=== PATIENT | male | born 1940 | race Caucasian/White ===

== ENCOUNTER 2018-09-28 17:20 | Inpatient (IN) | payer MEDICARE, OTHER, BC ==
[2018-09-28] MEDS: ONDANSETRON 4 MG INJ IV (18:04)
[2018-09-28] MEDS: morphine 4 MG/ML VIAL IV (18:04)
[2018-09-28 18:07] LABS: ADD MAN DIFF? NO
[2018-09-28 18:10] LABS: WHITE BLOOD COUNT 16.2 10^3/ul (4.8-10.8)
[2018-09-28 18:10] LABS: BASOPHIL # 0.1 10^3/ul (0.0-0.1); BASOPHILS % 0.4 % (0.0-2.0); EOSINOPHILS # 0.2 10^3/ul (0.0-0.5); HEMATOCRIT 37.5 % (42.0-52.0); HEMOGLOBIN 12.3 g/dl (14.0-18.0); LYMPHOCYTES # 1.4 10^3/ul (0.8-2.9); LYMPHOCYTES % 8.8 % (15.0-51.0); MEAN CORPUSCULAR HEMOGLOBIN 26.6 pg (29.0-33.0); MEAN CORPUSCULAR HGB CONC 32.8 g/dl (32.0-37.0); MEAN PLATELET VOLUME 12.2 fl (7.4-10.4); MONOCYTE # 1.2 10^3/ul (0.3-0.9); MONOCYTES % 7.2 % (0.0-11.0); NEUTROPHIL # 13.2 10^3/ul (1.6-7.5); NEUTROPHILS % 81.7 % (39.0-77.0); PLATELET COUNT 262 10^3/UL (140-415); RED BLOOD COUNT 4.63 10^6/ul (4.70-6.10); RED CELL DISTRIBUTION WIDTH 16.1 % (11.5-14.5)
[2018-09-28 18:27] LABS: INR 0.98; PARTIAL THROMBOPLASTIN TIME 31.5 Sec (23.0-35.0); PROTIME 13.1 Sec (11.9-14.9)
[2018-09-28 18:30] LABS: URINE BLOOD (Dip) POC 1+ (NEGATIVE); URINE GLUCOSE (Dip) POC Negative (NEGATIVE); URINE KETONES (Dip) POC Negative (NEGATIVE); URINE LEUKOCYTE EST (Dip) POC Negative (NEGATIVE); URINE NITRITE (Dip) POC Negative (NEGATIVE); URINE TOTAL PROTEIN POC 3+ (NEGATIVE)
[2018-09-28 18:30] LABS: URINE PH (Dip) POC 5.5 (5.0-8.5)
[2018-09-28 18:33] LABS: ALANINE AMINOTRANSFERASE 13 IU/L (13-69); ALBUMIN 4.3 g/dl (3.3-4.9); ALBUMIN/GLOBULIN RATIO 1.19; ALKALINE PHOSPHATASE 79 IU/L (42-121); ANION GAP 11 (5-13); ASPARTATE AMINO TRANSFERASE 39 IU/L (15-46); BILIRUBIN,INDIRECT 0.1 mg/dl (0-1.1); BILIRUBIN,TOTAL 0.1 mg/dl (0.2-1.3); BLOOD UREA NITROGEN 28 mg/dl (7-20); CALCIUM 9.8 mg/dl (8.4-10.2); CARBON DIOXIDE 23 mmol/L (21-31); CHLORIDE 106 mmol/L (97-110); CREATININE 1.41 mg/dl (0.61-1.24); GLUCOSE 132 mg/dl (70-220); LIPASE 60 U/L (23-300); POTASSIUM 4.5 mmol/L (3.5-5.1); SODIUM 140 mmol/L (135-144); TOTAL PROTEIN 7.9 g/dl (6.1-8.1)
[2018-09-28 18:42] LABS: TROPONIN-I 0.036 ng/ml (0.000-0.120)
[2018-09-28] MEDS: SOD CHLORIDE 0.9% 1,000 ML IV ×2 (19:22→22:19)
[2018-09-28] MEDS: SODIUM CHLORIDE 0.9% 1L BAG IV* (20:33)
[2018-09-28] MEDS: IPRATROPIUM (NEB) 0.5 MG/2.5 ML AMP HHN (20:58)
[2018-09-28] MEDS: LEVALBUTEROL (NEB) 1.25 MG/0.5 ML AMP HHN (20:58)
[2018-09-28] MEDS ORDERED: VANCOMYCIN IV PER PHARMACY XX (21:00)
[2018-09-28] MEDS ORDERED: ACETAMINOPHEN 325 MG TAB PO (21:00)
[2018-09-28] MEDS ORDERED: LABETALOL HCL 20MG INJ IV (21:00)
[2018-09-28] MEDS ORDERED: CEFEPIME 1GM/50 ML (PMX) 50 ML IVPB (21:00)
[2018-09-28] MEDS ORDERED: LEVALBUTEROL (NEB) 1.25 MG/0.5 ML AMP HHN (21:00)
[2018-09-28] MEDS ORDERED: NACL 0.9% 3 ML SYG IV (21:00)
[2018-09-28] MEDS: CEFEPIME 1GM/50 ML (PMX) 50 ML IVPB (21:07)
[2018-09-28] MEDS: VANCOMYCIN 1 GM (PMX) 250 ML IVPB (21:33)
[2018-09-28] MEDS: DOCUSATE SODIUM 100 MG CAP PO (22:19)
[2018-09-28] MEDS: HYDROCODONE/APAP (5/325) TAB PO ×2 (23:39→23:57)
[2018-09-29] MEDS: GUAIFENESIN/DM 5ML CUP PO (00:49)
[2018-09-29 01:02] LABS: LACTIC ACID 1.6 mmol/L (0.5-2.0)
[2018-09-29] MEDS: POLYETHYLENE GLYCOL 17 GM PACKET PO ×2 (02:43→20:37)
[2018-09-29] MEDS: SOD CHLORIDE 0.9% 1,000 ML IV (02:50)
[2018-09-29] MEDS: IPRATROPIUM (NEB) 0.5 MG/2.5 ML AMP HHN ×4 (03:06→20:00)
[2018-09-29] MEDS: LEVALBUTEROL (NEB) 1.25 MG/0.5 ML AMP HHN ×4 (03:06→20:00)
[2018-09-29 05:29] LABS: ADD MAN DIFF? NO
[2018-09-29 05:43] LABS: WHITE BLOOD COUNT 12.7 10^3/ul (4.8-10.8)
[2018-09-29 05:43] LABS: BASOPHIL # 0.1 10^3/ul (0.0-0.1); BASOPHILS % 0.5 % (0.0-2.0); EOSINOPHILS # 0.2 10^3/ul (0.0-0.5); EOSINOPHILS % 1.5 % (0.0-7.0); HEMATOCRIT 31.7 % (42.0-52.0); HEMOGLOBIN 10.4 g/dl (14.0-18.0); LYMPHOCYTES # 1.6 10^3/ul (0.8-2.9); LYMPHOCYTES % 12.3 % (15.0-51.0); MEAN CORPUSCULAR HEMOGLOBIN 26.7 pg (29.0-33.0); MEAN CORPUSCULAR HGB CONC 32.8 g/dl (32.0-37.0); MEAN CORPUSCULAR VOLUME 81.5 fl (82.0-101.0); MEAN PLATELET VOLUME 11.7 fl (7.4-10.4); MONOCYTE # 0.9 10^3/ul (0.3-0.9); MONOCYTES % 7.4 % (0.0-11.0); NEUTROPHIL # 9.9 10^3/ul (1.6-7.5); NEUTROPHILS % 77.4 % (39.0-77.0); PLATELET COUNT 223 10^3/UL (140-415); RED BLOOD COUNT 3.89 10^6/ul (4.70-6.10); RED CELL DISTRIBUTION WIDTH 15.8 % (11.5-14.5)
[2018-09-29 06:24] LABS: ALANINE AMINOTRANSFERASE 20 IU/L (13-69); ALKALINE PHOSPHATASE 60 IU/L (42-121); ANION GAP 3 (5-13); ASPARTATE AMINO TRANSFERASE 26 IU/L (15-46); BLOOD UREA NITROGEN 22 mg/dl (7-20); CALCIUM 8.6 mg/dl (8.4-10.2); CARBON DIOXIDE 25 mmol/L (21-31); CHLORIDE 110 mmol/L (97-110); CREATININE 1.36 mg/dl (0.61-1.24); GLUCOSE 110 mg/dl (70-220); POTASSIUM 4.3 mmol/L (3.5-5.1); SODIUM 138 mmol/L (135-144)
[2018-09-29 06:25] LABS: ALBUMIN 3.3 g/dl (3.3-4.9); ALBUMIN/GLOBULIN RATIO 1.03; BILIRUBIN,INDIRECT 0.1 mg/dl (0-1.1); BILIRUBIN,TOTAL 0.1 mg/dl (0.2-1.3); CHOL/HDL RATIO 3.6 RATIO; CHOLESTEROL 141 mg/dl (100-200); HDL CHOLESTEROL 39 mg/dl (31-75); LDL CHOLESTEROL,CALCULATED 76 mg/dl; TOTAL PROTEIN 6.5 g/dl (6.1-8.1); TRIGLYCERIDES 129 mg/dl (0-149)
[2018-09-29] MEDS: HYDROCODONE/APAP (5/325) TAB PO ×4 (06:37→20:41)
[2018-09-29] MEDS: ONDANSETRON 4 MG INJ IV (06:41)
[2018-09-29 06:50] LABS: HEMOGLOBIN A1C 5.8 % (0-5.9)
[2018-09-29] MEDS: CREON (24K-76K-120K) 1 CAP PO ×3 (08:23→17:53)
[2018-09-29] MEDS: DOCUSATE SODIUM 100 MG CAP PO ×2 (08:23→20:37)
[2018-09-29] MEDS: CEFEPIME 1GM/50 ML (PMX) 50 ML IVPB ×2 (08:24→20:37)
[2018-09-29] MEDS: FERROUS SULFATE (EC) 325 MG TAB PO ×2 (08:24→20:37)
[2018-09-29] MEDS: FOLIC ACID 1 MG TAB PO (08:24)
[2018-09-29] MEDS: CLOPIDOGREL 75 MG TAB PO (08:24)
[2018-09-29] MEDS: BUDESONIDE (NEB) 0.5MG/2ML AMP HHN ×2 (08:57→20:00)
[2018-09-29] MEDS: PREGABALIN 75 MG CAP PO (09:38)
[2018-09-29] MEDS: NICOTINE (21 MG/24 HR) PATCH TRANSDERM (09:39)
[2018-09-29] MEDS: PROMETHAZINE/CODEINE 5ML CUP PO ×2 (09:43→16:39)
[2018-09-29] MEDS: LIDOCAINE 5% PATCH TD (12:22)
[2018-09-29] MEDS: FUROSEMIDE 20 MG INJ IV ×2 (12:23→17:58)
[2018-09-29 15:32] LABS: ADD UMIC YES; UR ASCORBIC ACID NEGATIVE (NEGATIVE); UR BILIRUBIN (Dip) NEGATIVE (NEGATIVE); UR BLOOD (Dip) 1+ mg/dL (NEGATIVE); UR CLARITY CLEAR (CLEAR); UR COLOR YELLOW (YELLOW); UR GLUCOSE (Dip) NEGATIVE (NEGATIVE); UR KETONES (Dip) NEGATIVE (NEGATIVE); UR LEUKOCYTE ESTERASE (Dip) NEGATIVE Leu/ul (NEGATIVE); UR MUCUS FEW /HPF (NONE SEEN); UR NITRITE (Dip) NEGATIVE (NEGATIVE); UR RBC 2 /HPF (0-5); UR SPECIFIC GRAVITY (Dip) 1.024 (1.003-1.030); UR TOTAL PROTEIN (Dip) 2+ mg/dl (NEGATIVE); UR UROBILINOGEN (Dip) NEGATIVE (NEGATIVE); UR WBC 1 /HPF (0-5)
[2018-09-29] MEDS: VANCOMYCIN 750 MG (PMX) 250 ML IVPB (16:40)
[2018-09-29] MEDS: ATORVASTATIN 20 MG TAB PO (20:37)
[2018-09-29] MEDS: EZETIMIBE 10 MG TAB PO (21:56)
[2018-09-30] MEDS: LEVALBUTEROL (NEB) 1.25 MG/0.5 ML AMP HHN ×4 (02:43→19:30)
[2018-09-30] MEDS: HYDROCODONE/APAP (5/325) TAB PO ×3 (04:03→13:43)
[2018-09-30] MEDS: FUROSEMIDE 20 MG INJ IV (06:06)
[2018-09-30 07:11] LABS: ADD MAN DIFF? NO
[2018-09-30 07:19] LABS: WHITE BLOOD COUNT 11.4 10^3/ul (4.8-10.8)
[2018-09-30 07:19] LABS: BASOPHIL # 0.1 10^3/ul (0.0-0.1); BASOPHILS % 0.5 % (0.0-2.0); EOSINOPHILS # 0.2 10^3/ul (0.0-0.5); EOSINOPHILS % 2.1 % (0.0-7.0); HEMATOCRIT 34.2 % (42.0-52.0); HEMOGLOBIN 11.3 g/dl (14.0-18.0); LYMPHOCYTES # 1.5 10^3/ul (0.8-2.9); LYMPHOCYTES % 12.8 % (15.0-51.0); MEAN CORPUSCULAR HEMOGLOBIN 26.7 pg (29.0-33.0); MEAN CORPUSCULAR VOLUME 80.9 fl (82.0-101.0); MEAN PLATELET VOLUME 11.4 fl (7.4-10.4); MONOCYTE # 0.9 10^3/ul (0.3-0.9); MONOCYTES % 8.2 % (0.0-11.0); NEUTROPHIL # 8.6 10^3/ul (1.6-7.5); NEUTROPHILS % 75.1 % (39.0-77.0); PLATELET COUNT 260 10^3/UL (140-415); RED BLOOD COUNT 4.23 10^6/ul (4.70-6.10); RED CELL DISTRIBUTION WIDTH 15.8 % (11.5-14.5)
[2018-09-30 08:02] LABS: ANION GAP 10 (5-13); BLOOD UREA NITROGEN 25 mg/dl (7-20); CALCIUM 9.3 mg/dl (8.4-10.2); CARBON DIOXIDE 26 mmol/L (21-31); CHLORIDE 101 mmol/L (97-110); CREATININE 1.52 mg/dl (0.61-1.24); GLUCOSE 156 mg/dl (70-220); POTASSIUM 3.9 mmol/L (3.5-5.1); SODIUM 137 mmol/L (135-144)
[2018-09-30] MEDS: BUDESONIDE (NEB) 0.5MG/2ML AMP HHN ×2 (09:00→19:30)
[2018-09-30] MEDS: IPRATROPIUM (NEB) 0.5 MG/2.5 ML AMP HHN ×3 (09:02→19:30)
[2018-09-30] MEDS: FERROUS SULFATE (EC) 325 MG TAB PO (09:56)
[2018-09-30] MEDS: CEFEPIME 1GM/50 ML (PMX) 50 ML IVPB ×2 (09:56→20:58)
[2018-09-30] MEDS: NICOTINE (21 MG/24 HR) PATCH TRANSDERM (09:56)
[2018-09-30] MEDS: DOCUSATE SODIUM 100 MG CAP PO ×2 (09:57→20:59)
[2018-09-30] MEDS: FOLIC ACID 1 MG TAB PO (09:57)
[2018-09-30] MEDS: CREON (24K-76K-120K) 1 CAP PO ×3 (09:57→17:35)
[2018-09-30] MEDS: CLOPIDOGREL 75 MG TAB PO (09:57)
[2018-09-30] MEDS: PREGABALIN 75 MG CAP PO (09:57)
[2018-09-30] MEDS: KETOROLAC 15 MG INJ IV (13:34)
[2018-09-30] MEDS: LIDOCAINE 5% PATCH TD (13:35)
[2018-09-30] MEDS: EZETIMIBE 10 MG TAB PO (20:58)
[2018-09-30] MEDS: ATORVASTATIN 20 MG TAB PO (20:58)
[2018-10-01] MEDS: LEVALBUTEROL (NEB) 1.25 MG/0.5 ML AMP HHN ×4 (00:43→20:38)
[2018-10-01] MEDS: IPRATROPIUM (NEB) 0.5 MG/2.5 ML AMP HHN ×3 (07:35→20:38)
[2018-10-01] MEDS: BUDESONIDE (NEB) 0.5MG/2ML AMP HHN ×2 (07:48→20:40)
[2018-10-01] MEDS: HYDROCODONE/APAP (5/325) TAB PO (09:46)
[2018-10-01] MEDS: FOLIC ACID 1 MG TAB PO (09:47)
[2018-10-01] MEDS: LIDOCAINE 5% PATCH TD (09:47)
[2018-10-01] MEDS: CLOPIDOGREL 75 MG TAB PO (09:47)
[2018-10-01] MEDS: PREGABALIN 75 MG CAP PO (09:47)
[2018-10-01] MEDS: CREON (24K-76K-120K) 1 CAP PO ×3 (09:47→17:30)
[2018-10-01] MEDS: NICOTINE (21 MG/24 HR) PATCH TRANSDERM (09:47)
[2018-10-01] MEDS: POLYETHYLENE GLYCOL 17 GM PACKET PO (09:47)
[2018-10-01] MEDS: DOCUSATE SODIUM 100 MG CAP PO ×2 (09:47→21:58)
[2018-10-01] MEDS: CEFEPIME 1GM/50 ML (PMX) 50 ML IVPB ×2 (09:48→21:59)
[2018-10-01] MEDS: ACETYLCYSTEINE 20% 4 ML VIAL NEB ×2 (14:00→20:50)
[2018-10-01] MEDS: DEXTROSE 5%-0.9% NACL 1,000 ML IV (14:48)
[2018-10-01] MEDS: METHYLPREDNISOLONE 125 MG INJ IM (14:49)
[2018-10-01] MEDS: NICOTINE (14 MG/24 HR) PATCH TRANSDERM (14:50)
[2018-10-01 15:07] LABS: LACTIC ACID 1.9 mmol/L (0.5-2.0)
[2018-10-01 15:07] LABS: IRON 45 ug/dl (35-150)
[2018-10-01 15:08] LABS: MAGNESIUM 1.9 mg/dl (1.7-2.5)
[2018-10-01 15:17] LABS: % IRON SATURATION 22 % SAT (22-52); TOTAL IRON BINDING CAPACITY 204 ug/dl (241-421)
[2018-10-01 15:38] LABS: THYROID STIMULATING HORMONE 0.975 MIU/L (0.465-4.680)
[2018-10-01] MEDS: MAGNESIUM SULFATE 2 GM/50 ML 50 ML IVPB (16:42)
[2018-10-01] MEDS: ATORVASTATIN 20 MG TAB PO (21:58)
[2018-10-01] MEDS: EZETIMIBE 10 MG TAB PO (21:58)
[2018-10-01 22:41] LABS: ADD UMIC YES; UR ASCORBIC ACID NEGATIVE (NEGATIVE); UR BILIRUBIN (Dip) NEGATIVE (NEGATIVE); UR BLOOD (Dip) 1+ mg/dL (NEGATIVE); UR CLARITY CLEAR (CLEAR); UR COLOR STRAW (YELLOW); UR GLUCOSE (Dip) NEGATIVE (NEGATIVE); UR KETONES (Dip) NEGATIVE (NEGATIVE); UR LEUKOCYTE ESTERASE (Dip) NEGATIVE Leu/ul (NEGATIVE); UR NITRITE (Dip) NEGATIVE (NEGATIVE); UR RBC 0 /HPF (0-5); UR SPECIFIC GRAVITY (Dip) 1.008 (1.003-1.030); UR TOTAL PROTEIN (Dip) NEGATIVE (NEGATIVE); UR UROBILINOGEN (Dip) NEGATIVE (NEGATIVE); UR WBC 0 /HPF (0-5)
[2018-10-01 22:45] LABS: CREATININE,URINE RANDOM 26.06 mg/dl (20-370); PROTEIN/CREAT RATIO 1.99 RATIO
[2018-10-02] MEDS: LEVALBUTEROL (NEB) 1.25 MG/0.5 ML AMP HHN ×4 (02:00→20:09)
[2018-10-02] MEDS: DEXTROSE 5%-0.9% NACL 1,000 ML IV (05:10)
[2018-10-02 06:36] LABS: ADD MAN DIFF? NO
[2018-10-02 06:38] LABS: WHITE BLOOD COUNT 15.2 10^3/ul (4.8-10.8)
[2018-10-02 06:38] LABS: BASOPHILS % 0.2 % (0.0-2.0); HEMATOCRIT 33.9 % (42.0-52.0); HEMOGLOBIN 11.2 g/dl (14.0-18.0); LYMPHOCYTES # 1.2 10^3/ul (0.8-2.9); LYMPHOCYTES % 7.9 % (15.0-51.0); MEAN CORPUSCULAR HEMOGLOBIN 26.4 pg (29.0-33.0); MONOCYTE # 0.7 10^3/ul (0.3-0.9); MONOCYTES % 4.7 % (0.0-11.0); NEUTROPHIL # 12.8 10^3/ul (1.6-7.5); NEUTROPHILS % 84.4 % (39.0-77.0); PLATELET COUNT 322 10^3/UL (140-415); RED BLOOD COUNT 4.24 10^6/ul (4.70-6.10); RED CELL DISTRIBUTION WIDTH 15.1 % (11.5-14.5)
[2018-10-02 07:12] LABS: ALANINE AMINOTRANSFERASE 67 IU/L (13-69); ALBUMIN 3.7 g/dl (3.3-4.9); ALBUMIN/GLOBULIN RATIO 1.05; ALKALINE PHOSPHATASE 88 IU/L (42-121); ANION GAP 10 (5-13); ASPARTATE AMINO TRANSFERASE 77 IU/L (15-46); BLOOD UREA NITROGEN 34 mg/dl (7-20); CALCIUM 9.6 mg/dl (8.4-10.2); CARBON DIOXIDE 27 mmol/L (21-31); CHLORIDE 99 mmol/L (97-110); CREATININE 1.35 mg/dl (0.61-1.24); GLUCOSE 132 mg/dl (70-220); PHOSPHORUS 3.8 mg/dl (2.5-4.9); POTASSIUM 5.5 mmol/L (3.5-5.1); SODIUM 136 mmol/L (135-144); TOTAL PROTEIN 7.2 g/dl (6.1-8.1)
[2018-10-02] MEDS: IPRATROPIUM (NEB) 0.5 MG/2.5 ML AMP HHN ×3 (07:48→20:09)
[2018-10-02] MEDS: ACETYLCYSTEINE 20% 4 ML VIAL NEB ×3 (07:49→20:17)
[2018-10-02] MEDS: BUDESONIDE (NEB) 0.5MG/2ML AMP HHN ×2 (07:50→20:10)
[2018-10-02] MEDS: CEFEPIME 1GM/50 ML (PMX) 50 ML IVPB ×2 (09:21→20:44)
[2018-10-02] MEDS: CREON (24K-76K-120K) 1 CAP PO ×3 (09:22→17:19)
[2018-10-02] MEDS: PREGABALIN 75 MG CAP PO (09:22)
[2018-10-02] MEDS: CLOPIDOGREL 75 MG TAB PO (09:22)
[2018-10-02] MEDS: FOLIC ACID 1 MG TAB PO (09:22)
[2018-10-02] MEDS: DOCUSATE SODIUM 100 MG CAP PO ×2 (09:22→20:44)
[2018-10-02] MEDS: SODIUM POLYSTYRENE 15 GM KIT (POWDER + SORBITOL) PO (09:25)
[2018-10-02] MEDS: LIDOCAINE 5% PATCH TD (09:33)
[2018-10-02] MEDS: NICOTINE (14 MG/24 HR) PATCH TRANSDERM (11:20)
[2018-10-02] MEDS: MAGNESIUM SULFATE 2 GM/50 ML 50 ML IVPB (11:20)
[2018-10-02] MEDS: METHYLPREDNISOLONE 125 MG INJ IV (11:45)
[2018-10-02 15:28] LABS: POTASSIUM 4.4 mmol/L (3.5-5.1)
[2018-10-02] MEDS: EZETIMIBE 10 MG TAB PO (20:44)
[2018-10-02] MEDS: ATORVASTATIN 20 MG TAB PO (20:44)
[2018-10-03] MEDS: LEVALBUTEROL (NEB) 1.25 MG/0.5 ML AMP HHN ×3 (02:02→13:09)
[2018-10-03] MEDS: ACETYLCYSTEINE 20% 4 ML VIAL NEB ×2 (02:02→08:03)
[2018-10-03 06:10] LABS: ADD MAN DIFF? NO
[2018-10-03 06:12] LABS: BASOPHILS % 0.2 % (0.0-2.0); EOSINOPHILS % 0.2 % (0.0-7.0); HEMATOCRIT 32.2 % (42.0-52.0); HEMOGLOBIN 10.5 g/dl (14.0-18.0); LYMPHOCYTES # 2.3 10^3/ul (0.8-2.9); LYMPHOCYTES % 13.6 % (15.0-51.0); MEAN CORPUSCULAR HEMOGLOBIN 26.3 pg (29.0-33.0); MEAN CORPUSCULAR HGB CONC 32.6 g/dl (32.0-37.0); MEAN CORPUSCULAR VOLUME 80.5 fl (82.0-101.0); MEAN PLATELET VOLUME 11.1 fl (7.4-10.4); MONOCYTE # 1.2 10^3/ul (0.3-0.9); NEUTROPHILS % 77.1 % (39.0-77.0); PLATELET COUNT 338 10^3/UL (140-415); RED CELL DISTRIBUTION WIDTH 15.5 % (11.5-14.5)
[2018-10-03 06:12] LABS: WHITE BLOOD COUNT 16.8 10^3/ul (4.8-10.8)
[2018-10-03 06:48] LABS: ALANINE AMINOTRANSFERASE 86 IU/L (13-69); ALBUMIN 3.5 g/dl (3.3-4.9); ALBUMIN/GLOBULIN RATIO 1.09; ALKALINE PHOSPHATASE 77 IU/L (42-121); ANION GAP 11 (5-13); ASPARTATE AMINO TRANSFERASE 88 IU/L (15-46); BLOOD UREA NITROGEN 37 mg/dl (7-20); CALCIUM 9.4 mg/dl (8.4-10.2); CARBON DIOXIDE 29 mmol/L (21-31); CHLORIDE 99 mmol/L (97-110); CREATININE 1.34 mg/dl (0.61-1.24); GLUCOSE 115 mg/dl (70-220); POTASSIUM 4.4 mmol/L (3.5-5.1); SODIUM 139 mmol/L (135-144); TOTAL PROTEIN 6.7 g/dl (6.1-8.1)
[2018-10-03 07:06] LABS: PROTEIN, TOTAL 6.1 g/dL (6.1-8.1)
[2018-10-03] MEDS: IPRATROPIUM (NEB) 0.5 MG/2.5 ML AMP HHN ×2 (08:03→13:09)
[2018-10-03] MEDS: BUDESONIDE (NEB) 0.5MG/2ML AMP HHN (08:09)
[2018-10-03] MEDS: LIDOCAINE 5% PATCH TD (08:59)
[2018-10-03] MEDS: CEFEPIME 1GM/50 ML (PMX) 50 ML IVPB (08:59)
[2018-10-03] MEDS: CLOPIDOGREL 75 MG TAB PO (08:59)
[2018-10-03] MEDS: NICOTINE (14 MG/24 HR) PATCH TRANSDERM (09:00)
[2018-10-03] MEDS: CREON (24K-76K-120K) 1 CAP PO ×2 (09:00→11:37)
[2018-10-03] MEDS: PREGABALIN 75 MG CAP PO (09:00)
[2018-10-03] MEDS: METHYLPREDNISOLONE 40 MG INJ IV (09:00)
[2018-10-03] MEDS: FOLIC ACID 1 MG TAB PO (09:01)
[2018-10-03] MEDS: DOCUSATE SODIUM 100 MG CAP PO (09:01)
[2018-10-03 11:05] LABS: COMPLEMENT C3 103 mg/dl (88-165); COMPLEMENT C4 26 mg/dl (14-44)
[2018-10-03 16:21] LABS: ALPHA-1-GLOBULINS 0.5 g/dL (0.2-0.3); ALPHA-2-GLOBULINS 1.1 g/dL (0.5-0.9); BETA 2 GLOBULINS 0.4 g/dL (0.2-0.5); BETA GLOBULINS 0.4 g/dL (0.4-0.6); GAMMA GLOBULINS 0.7 g/dL (0.8-1.7)
[2018-10-05 18:36] LABS: PTH CALCIUM 9.4 mg/dL (8.6-10.3)
[2018-10-06 11:32] LABS: PTH INTACT 70 pg/mL (14-64)
[2018-10-06 13:51] LABS: ANCA SCREEN NEGATIVE (NEGATIVE)
[2018-10-06 15:21] LABS: MYELOPEROXIDASE ANTIBODY <1.0 AI; PROTEINASE-3 ANTIBODY <1.0 AI
[2018-10-06 20:02] LABS: ANA SCREEN POSITIVE (NEGATIVE)
== END 2018-10-03 14:30 | disposition home health service (06) | DRG 871 ==
LOC: ICU 20:38 → E/R 17:20 → PP2 09-29 19:10
DX: A41.9 Sepsis, unspecified organism (principal); J18.9 Pneumonia, unspecified organism; I50.31 Acute diastolic (congestive) heart failure; J44.1 Chronic obstructive pulmonary disease with (acute) exacerbation; N17.9 Acute kidney failure, unspecified; I13.0 Hypertensive heart and chronic kidney disease with heart failure and stage 1 through stage 4 chronic kidney disease, or unspecified chronic kidney disease; I11.0 Hypertensive heart disease with heart failure; E87.5 Hyperkalemia; E86.0 Dehydration; Z99.81 Dependence on supplemental oxygen; N18.3 Chronic kidney disease, stage 3 (moderate); D63.8 Anemia in other chronic diseases classified elsewhere; R55 Syncope and collapse; R07.81 Pleurodynia; K59.00 Constipation, unspecified; I73.9 Peripheral vascular disease, unspecified; E78.5 Hyperlipidemia, unspecified; F17.200 Nicotine dependence, unspecified, uncomplicated; W19.XXXA Unspecified fall, initial encounter; I25.10 Atherosclerotic heart disease of native coronary artery without angina pectoris; F32.9 Major depressive disorder, single episode, unspecified; K21.9 Gastro-esophageal reflux disease without esophagitis; F41.9 Anxiety disorder, unspecified; Y95 Nosocomial condition; F17.210 Nicotine dependence, cigarettes, uncomplicated; Z79.82 Long term (current) use of aspirin; Z79.02 Long term (current) use of antithrombotics/antiplatelets
CPT/HCPCS: 36415; 70450; 71045; 71250; 74176; 76775; 80048; 80053; 80061; 81001; 81003; 82570; 83036; 83540; 83605; 83690; 83735; 83970; 84100; 84132; 84155; 84165; 84443; 84484; 85025; 85610; 85730; 86021; 86038; 86160; 87040; 87086; 93005; 93306; 93880; 94640; 94664; 96374; 96375; 97161; 99285-25